=== PATIENT | female | born 1975 | race Caucasian/White ===

== ENCOUNTER 2017-02-23 01:23 | Emergency (ER) | payer OTHER ==
--- NOTE | ~2017-02-23 | CT2 ---
[facility] A Service [facility] RADIOLOGY TEXT RESULTS PATIENT: TRINITY PRITCHARD LOCATION: [facility] : [birth year] UNIT #: [id number] AGE: [address]: Mel Cruz MD SEX: F ORDER DR: [id number] [address] [id number] MR#: [id number] Acc #: [id number] NAME: TRINITY PRITCHARD : 1975 SEX: F STUDY DATE/TIME: 02/23/2017 3:44 UNIT: [facility] ROOM: STUDY DESCRIPTION: CT Abd and Pelv W Cont Attending Physician: Mel Cruz M.D. Ordering Physician: Mel Cruz M.D. Primary Care Physician: Primary Care Physician No MEDICAL IMAGING REPORT This report is preliminary unless electronic signature is present EXAM CT abdomen and pelvis INDICATION Abdominal pain. Left lower quadrant pain. Hematochezia. TECHNIQUE CT abdomen and pelvis with p.o. and IV contrast. Coronal and sagittal reconstructions were obtained. This CT exam was performed with one or more of the following radiation dose reduction techniques: automatic exposure control, adjustment of mA and/or kV according to patient size, and iterative reconstruction. COMPARISON CT abdomen and pelvis dated 04/18/2011. FINDINGS ABDOMEN: The solid abdominal organs are within normal limits. Gallbladder is not distended. The bowel is not dilated. There is some circumferential thickening of the colon from the descending colon to the rectum. This is indicative of a colitis. No evidence of abscess or perforation. The appendix is normal. The abdominal aorta is normal in caliber. PELVIS: No pelvic mass. Bladder is unremarkable. The uterus and ovaries are within normal limits. No acute osseous abnormalities. IMPRESSION [facility] A Service [facility] RADIOLOGY TEXT RESULTS PATIENT: TRINITY PRITCHARD LOCATION: [facility] : [birth year] UNIT #: [id number] AGE: [address]: Mel Cruz MD SEX: F ORDER DR: Diffuse wall thickening in the descending colon, sigmoid colon, and rectum indicative of a colitis. No abscess or perforation. Dictated by... Pedro Bustamante M.D. THIS IS AN ELECTRONICALLY VERIFIED REPORT Pedro Bustamante M.D. at 02/23/2017 5:23 AM PRESLEY/michel TD: 02/23/2017 04:46 JOB #: [id number] MEDICAL IMAGING REPORT Page 1 of 1 COPY
[2017-02-23 02:06] LABS: URINE SOURCE CLEAN CATCH
[2017-02-23 02:12] LABS: BASOPHIL% 0.3 % (0-2.5); EOSINOPHIL# 0.1 X10e3 (0-0.7); HEMATOCRIT 41.5 % (35.0-45.0); HEMOGLOBIN 13.7 gm/dL (12.0-16.0); LYMPHOCYTE# 1.4 X10e3 (1.0-3.5); LYMPHOCYTE% 10.8 % (17.0-45.0); MEAN CORPUSCULAR HEMOGLOBIN 30.7 PG (28-34); MEAN PLATELET VOLUME 10.2 FL (6.5-11.5); MONOCYTE# 0.6 X10e3 (0-1.0); MONOCYTE% 4.5 % (3.0-12.0); NEUTROPHIL# 11.1 X10e3 (1.5-7.1); NEUTROPHIL% 83.4 % (40-75); PLATELET COUNT 216 X10e3 (140-420); RED BLOOD COUNT 4.46 X10e (3.90-5.30); RED CELL DISTRIBUTION WIDTH 12.3 % (11.0-15.5); WHITE BLOOD COUNT 13.3 X10e3 (4.0-10.5)
[2017-02-23 02:13] LABS: URINE APPEARANCE CLEAR; URINE BILIRUBIN NEG (NEG); URINE BLOOD NEG (NEG); URINE COLOR YELLOW; URINE GLUCOSE NEG (NEG); URINE KETONE NEG (NEG); URINE LEUKOCYTE ESTERASE NEG (NEG); URINE NITRATE NEG (NEG); URINE PROTEIN NEG (NEG); URINE SPECIFIC GRAVITY 1.005 (1.003-1.035); URINE UROBILINOGEN 0.2 MG/DL (NEG)
[2017-02-23 02:16] LABS: CULTURE INDICATED? NO; DIFF IND NO
[2017-02-23 02:51] LABS: ALBUMIN SERUM 4.1 g/dL (3.5-5.0); BILIRUBIN, DIRECT 0.1 mg/dL (0.0-0.2); BILIRUBIN,INDIRECT 0.4 mg/dL (0.0-0.9); BILIRUBIN,TOTAL 0.5 mg/dL (0.2-2.0); BUN/CREATININE RATIO 24.28; CALCIUM SERUM 9.8 mg/dL (8.4-10.2); CREATININE SERUM 0.7 mg/dL (0.6-1.4); GLOM FILT RATE Estimated 106.9 mL/min (>60); POTASSIUM 4.4 mmol/L (3.5-5.1)
== END 2017-02-23 04:30 | disposition home or self-care (01) ==
LOC: CED 01:23
DX: K52.9 Noninfective gastroenteritis and colitis, unspecified (principal); Z88.0 Allergy status to penicillin; Z88.2 Allergy status to sulfonamides; Z88.1 Allergy status to other antibiotic agents
CPT/HCPCS: 36415; 74177; 80048; 80076; 81003; 83690; 84703; 85025; 96361; 96374; 99284; J2405; Q9967